=== PATIENT | female | born 1970 | race Caucasian/White ===

== ENCOUNTER → 2016-12-22 | Outpatient (CLI) | payer OTHER ==
[~2016-12-22] MED LIST: AMLO5 PO; LEVO75TA3 PO; METF500T PO; OXYC-392 PO; ZOFR4TAB PO
[2016-12-22 12:29] LABS: ALT (GPT) 26 U/L (10-53); ANION GAP 10 MEQ/L (5-15); AST (GOT) 18 U/L (15-37); BICARBONATE 24.1 MEQ/L (21.0-32.0); BLOOD UREA NITROGEN 14 MG/DL (7-18); CHLORIDE 105 MEQ/L (98-107); GLOMERULAR FILTRATION RATE 79 ML/MIN (>89); GLUCOSE,FASTING 160 MG/DL (74-99); MAGNESIUM 1.8 MG/DL (1.5-2.5); POTASSIUM 3.7 MEQ/L (3.5-5.1); SODIUM (NA) 139 MEQ/L (136-145)
[2016-12-22 12:55] LABS: ALKALINE PHOSPHATASE 55 U/L (45-117); TOTAL BILIRUBIN ADULT 0.5 MG/DL (0.2-1.0)
[2016-12-22 16:53] LABS: HEMOGLOBIN LA1C 2.3 %
[2016-12-22 16:54] LABS: HEMOGLOBIN Ao 82.9 %
== END ==
LOC: ELAB 08:09
PROVIDERS: ATTEND Family Medicine
DX: E11.9 Type 2 diabetes mellitus without complications (principal); E87.8 Other disorders of electrolyte and fluid balance, not elsewhere classified; E55.9 Vitamin D deficiency, unspecified
CPT/HCPCS: 36415; 80053; 82306; 82607; 83036; 83735

== ENCOUNTER 2017-12-30 14:14 | Observation (INO) | payer OTHER ==
[~2017-12-30] VITALS: Ht 170.2 cm; Wt 105.0 kg
[~2017-12-30 14:14] MED LIST changes: +LEVO75TA43 PO
[2017-12-30 14:34] VITALS: BP 182/87; PULSE 120; RESP 20; TEMP 98.8; O2SAT 96
[2017-12-30] MEDS ORDERED: SODIUM CHLOR 0.9% 1000 ML INJ 1,000 ML IV ONE ×2 (14:37→16:00)
[2017-12-30] MEDS ORDERED: KETOROLAC TROMETHAMINE 30 MG/ML (IVP) VIAL IV PUSH ONE (14:45)
[2017-12-30] MEDS ORDERED: ONDANSETRON HCL 4 MG/2 ML VIAL IV PUSH ONE (14:45)
--- NOTE | 2017-12-30 15:05 | PD ---
HPI Chief Complaint: Flank/Kidney Pain Time Seen by Provider: 14:29 Travel History International Travel<30 days: No Contact w/Intl Traveler<30days: No Traveled to known affect area: No History of Present Illness HPI 47-year-old female presents with left-sided flank pain over the past couple of days with nausea and chills that feels similar to prior kidney stone. She states that last year she had to have a stent and since then has had it removed. She states she prefers Dr. Pickett to be her urologist. She denies other associated symptoms. Quality pain is sharp. Severity is moderate. She denies specific modifying factors. She does note traveling around and did not know if it was related to that with the movements. Duration is couple of days. PFSH Past Medical History Kidney Stones: Yes Tetanus Vaccination: Unknown Influenza Vaccination: No ?: Not Past Surgical History Section: Yes Other Surgery: Yes (Lithotripsy, renal stent) Social History Alcohol Use: Yes (ONCE IN A WHILE) Tobacco Use: No Substance Use: No Allergies-Medications (Allergen,Severity, Reaction): Coded Allergies: Sulfa (Sulfonamide Antibiotics) (Unverified Allergy, Severe, Hives, ) ciprofloxacin (Unverified Allergy, Severe, Hives, 12/30/17) Reported Meds & Prescriptions Reported Meds & Active Scripts Active Reported Metformin (Metformin HCl) 500 Mg Tab 500 Mg PO BIDPC With meals Levoxyl (Levothyroxine Sodium) 75 Mcg Tab 75 Mcg PO DAILY Review of Systems Except as stated in HPI: all other systems reviewed are Neg Physical Exam Narrative GENERAL: 47-year-old female in no apparent distress SKIN: Focused skin assessment warm/dry. HEAD: Atraumatic. Normocephalic. EYES: Pupils equal and round. No scleral icterus. No injection or drainage. ENT: No nasal bleeding or discharge. Mucous membranes pink and moist. NECK: Trachea midline. CARDIOVASCULAR: Regular rate and rhythm. RESPIRATORY: No accessory muscle use. Clear to auscultation. Breath sounds equal bilaterally. GASTROINTESTINAL: Abdomen soft, mild tenderness in the lower abdomen, nondistended. Back: No CVA tenderness, no midline pain, mild tenderness to left mid lateral back MUSCULOSKELETAL: No obvious deformities. No clubbing. No cyanosis. NEUROLOGICAL: Awake and alert. No obvious cranial nerve deficits. Motor grossly within normal limits. Normal speech. PSYCHIATRIC: Appropriate mood and affect; insight and judgment normal. Data Data Last Documented VS Vital Signs Date Time Temp Pulse Resp B/P (MAP) Pulse Ox O2 Delivery O2 Flow Rate FiO2 12/30/17 14:38 18 12/30/17 14:34 98.8 120 182/87 (118) 96 Orders Orders Complete Blood Count With Diff (12/30/17 14:37) Comprehensive Metabolic Panel (12/30/17 14:37) Urinalysis - C+S If Indicated (12/30/17 14:37) Ed Urine Pregnancytest Poc (12/30/17 14:37) Ct Abd/Pel W/O Iv Contrast (12/30/17 14:37) Ecg Monitoring (12/30/17 14:37) Iv Access Insert/Monitor (12/30/17 14:37) Ketorolac Inj (Toradol Inj) (12/30/17 14:45) Ondansetron Inj (Zofran Inj) (12/30/17 14:45) Sodium Chloride 0.9% Flush (Ns Flush) (12/30/17 14:45) Sodium Chlor 0.9% 1000 Ml Inj (Ns 1000 M (12/30/17 14:37) Urine Culture (12/30/17 14:45) Lactic Acid Sepsis Protocol (12/30/17 15:52) Blood Culture (12/30/17 15:52) Ceftriaxone Inj (Rocephin Inj) (12/30/17 16:00) Sodium Chlor 0.9% 1000 Ml Inj (Ns 1000 M (12/30/17 16:00) Consult General Surgery (12/30/17 ) Piperacil-Tazo 4.5 Gm Premix (Zosyn 4.5 (12/30/17 16:38) Metronidazole 500 Mg Inj (Flagyl 500 Mg (12/30/17 16:38) Morphine Inj (Morphine Inj) (12/30/17 17:00) Consult Renetta Nfs (12/30/17 ) (Hub Use Only)Inp Phy Cons/Ref (12/30/17 ) Admit Order (Ed Use Only) (12/30/17 17:03) Labs Laboratory Tests Test 12/30/17 14:45 White Blood Count 11.6 TH/MM3 Red Blood Count 4.78 MIL/MM3 Hemoglobin 13.0 GM/DL Hematocrit 37.3 % Mean Corpuscular Volume 78.0 FL Mean Corpuscular Hemoglobin 27.1 PG Mean Corpuscular Hemoglobin Concent 34.8 % Red Cell Distribution Width 14.3 % Platelet Count 247 TH/MM3 Mean Platelet Volume 8.8 FL Neutrophils (%) (Auto) 83.3 % Lymphocytes (%) (Auto) 10.5 % Monocytes (%) (Auto) 5.4 % Eosinophils (%) (Auto) 0.3 % Basophils (%) (Auto) 0.5 % Neutrophils # (Auto) 9.7 TH/MM3 Lymphocytes # (Auto) 1.2 TH/MM3 Monocytes # (Auto) 0.6 TH/MM3 Eosinophils # (Auto) 0.0 TH/MM3 Basophils # (Auto) 0.1 TH/MM3 CBC Comment DIFF FINAL Differential Comment Urine Color YELLOW Urine Turbidity HAZY Urine pH 6.0 Urine Specific [place] 1.009 Urine Protein TRACE mg/dL Urine Glucose (UA) NEG mg/dL Urine Ketones TRACE mg/dL Urine Occult Blood TRACE Urine Nitrite POS Urine Bilirubin NEG Urine Urobilinogen LESS THAN 2.0 MG/DL Urine Leukocyte Esterase LARGE Urine RBC 11 /hpf Urine WBC /hpf Urine Squamous Epithelial Cells 1 /hpf Urine Calcium Oxalate Crystals OCC /hpf Urine Amorphous Sediment RARE Urine Bacteria MANY /hpf Urine Mucus FEW /lpf Microscopic Urinalysis Comment CULTURE INDICATED Blood Urea Nitrogen 10 MG/DL Creatinine 0.75 MG/DL Random Glucose 150 MG/DL Total Protein 8.0 GM/DL Albumin 3.8 GM/DL Calcium Level 8.9 MG/DL Alkaline Phosphatase 85 U/L Aspartate Amino Transf (AST/SGOT) 14 U/L Alanine Aminotransferase (ALT/SGPT) 28 U/L Total Bilirubin 0.9 MG/DL Sodium Level 136 MEQ/L Potassium Level 3.7 MEQ/L Chloride Level 102 MEQ/L Carbon Dioxide Level 22.8 MEQ/L Anion Gap 11 MEQ/L Estimat Glomerular Filtration Rate 83 ML/MIN [facility] Medical Decision Making Medical Screen Exam Complete: Yes Emergency Medical Condition: Yes Medical Record Reviewed: Yes (Past history confirmed) Interpretation(s) CBC & BMP Diagram 12/30/17 14:45 Total Protein 8.0, Albumin 3.8, Calcium Level 8.9, Alkaline Phosphatase 85, Aspartate Amino Transf (AST/SGOT) 14 L, Alanine Aminotransferase (ALT/SGPT) 28, Total Bilirubin 0.9 Last 24 hours Impressions Abdomen/Pelvis CT 12/30/17 1437 Signed Impressions: Service Date/Time: December 15:35 - CONCLUSION: 1. Inflammatory changes are noted surrounding a thickened loop of sigmoid colon suggesting acute diverticulitis. Acute colitis is also in the differential. Tiny air bubbles are noted adjacent to the wall of the sigmoid suggesting possible microperforation. 2. Retroperitoneal, right iliac and bilateral obturator lymphadenopathy. Infectious and neoplastic etiologies should be considered. 3. Enlarged fatty liver. 4. Splenomegaly. 5. 2.2 cm nonobstructing calcified right renal calculus. 6. 3 cm right ovarian cyst. Moustapha Barth MD Differential Diagnosis Kidney stone, UTI, renal failure, musculoskeletal Narrative Course We will check blood work, urinalysis, CT scan abdominal pelvis and dose with IV fluids, Zofran, Toradol and reevaluate Patient and family updated about CT scan. Given copy of report. Will discuss with general surgery and admit to the hospital, they agree to plan Physician Communication Physician Communication dr awad states to give zosyn and flagyl and will follow along dr browne agrees to admit Diagnosis Primary Impression: Diverticulitis Additional Impression: UTI (urinary tract infection) Qualified Codes: N39.0 - Urinary tract infection, site not specified Admitting Information Admitting Physician Requests: Hillary Lua MD Dec 30, 2017 15:05
[2017-12-30 15:10] LABS: AUTOMATED NEUTROPHIL # 9.7 TH/MM3 (1.8-7.7); BASOPHIL # 0.1 TH/MM3 (0-0.2); BASOPHIL % 0.5 % (0.0-2.0); EOSINOPHIL % 0.3 % (0.0-4.0); HEMATOCRIT 37.3 % (35.0-46.0); LYMPH % 10.5 % (9.0-44.0); LYMPHOCYTE # 1.2 TH/MM3 (1.0-4.8); MEAN CORPUSCULAR HEMOGLOBIN 27.1 PG (27.0-34.0); MEAN CORPUSCULAR HGB CONC 34.8 % (32.0-36.0); MEAN PLATELET VOLUME 8.8 FL (7.0-11.0); MONO % 5.4 % (0.0-8.0); MONOCYTE # 0.6 TH/MM3 (0-0.9); NEUT % 83.3 % (16.0-70.0); PLATELET COUNT 247 TH/MM3 (150-450); RED BLOOD COUNT 4.78 MIL/MM3 (4.00-5.30); RED CELL DISTRIBUTION WIDTH 14.3 % (11.6-17.2); WHITE BLOOD COUNT 11.6 TH/MM3 (4.0-11.0)
[2017-12-30] MEDS: SODIUM CHLORIDE 0.9% FLUSH 10 ML FLUSH IVF PRN ×2 (15:16→16:18)
[2017-12-30 15:20] LABS: AMORPHOUS SEDIMENT, URINE RARE; BACTERIA, URINE MANY /hpf; BILIRUBIN, URINE NEG (NEG); BLOOD, URINE TRACE (NEG); CALCIUM OXALATE CRYSTALS,URINE OCC /hpf; GLUCOSE,URINE NEG (NEG); KETONE, URINE TRACE mg/dL (NEG); MUCUS URINE FEW /lpf (OCC); NITRITE,URINE POS (NEG); SQUAMOUS EPITHELIAL CELL URINE 1 /hpf (0-5); URINE COLOR YELLOW (YELLW/STRAW); URINE LEUKOCYTE ESTERASE LARGE (NEG)
[2017-12-30 15:45] LABS: ALBUMIN 3.8 GM/DL (3.4-5.0); AST (GOT) 14 U/L (15-37); BICARBONATE 22.8 MEQ/L (21.0-32.0); BLOOD UREA NITROGEN 10 MG/DL (7-18); CALCIUM 8.9 MG/DL (8.5-10.1); CHLORIDE 102 MEQ/L (98-107); CREATININE 0.75 MG/DL (0.50-1.00); GLOMERULAR FILTRATION RATE 83 ML/MIN (>89); GLUCOSE,RANDOM 150 MG/DL (74-106); SODIUM (NA) 136 MEQ/L (136-145)
[2017-12-30 15:49] LABS: ALKALINE PHOSPHATASE 85 U/L (45-117); ALT (GPT) 28 U/L (10-53); TOTAL BILIRUBIN ADULT 0.9 MG/DL (0.2-1.0)
[2017-12-30] MEDS ORDERED: cefTRIAXone INJ 1,000 MG in SODIUM CHLORIDE 0.9% INJ 100 ML IV ONE (16:00)
--- NOTE | 2017-12-30 16:14 | RADRPT ---
EXAM DATE/TIME: 12/30/2017 15:35 [place] COMPARISON: No previous studies available for comparison. INDICATIONS : Left flank pain, night sweats, and weakness ORAL CONTRAST: No oral contrast ingested. RADIATION DOSE: 8.52 CTDIvol (mGy) MEDICAL HISTORY : Diabetes mellitus type 2. Renal calculi. SURGICAL HISTORY : section. ENCOUNTER: Initial ACUITY: 3 days PAIN SCALE: 5/10 LOCATION: Left flank TECHNIQUE: Volumetric scanning of the abdomen and pelvis was performed. Using automated exposure control and ad justment of the mA and/or kV according to patient size, radiation dose was kept as low as reasonably achievable to obtain optimal diagnostic quality images. DICOM format image data is available electro nically for review and comparison. FINDINGS: Inflammatory changes are noted surrounding a thickened loop of sigmoid colon suggesting acute diverti culitis. Acute colitis is also in the differential. Tiny air bubbles are noted adjacent to the wall o f the sigmoid suggesting possible microperforation. The liver is enlarged and demonstrates diffuse fatty infiltration. No focal mass is noted. No biliary ductal dilatation is noted. The gallbladder is unremarkable. The spleen is enlarged. The pancreas is normal. The adrenal glands are normal. There is a large calcified nonobstructing right renal calculu s measuring 2.2 x 1.0 x 1.9 cm. No hydronephrosis is noted. Mildly enlarged retroperitoneal lymph nod es are noted with the largest retroperitoneal lymph nodes measuring 2.3 and 2.1 cm. There are also mi ldly prominent obturator lymph nodes bilaterally measuring 2.7 and 2.5 cm in greatest dimension. Ther e is an enlarged right common iliac lymph node measuring 2.0 cm in greatest dimension. Infectious and neoplastic etiologies should be considered. The abdominal aorta and inferior vena cava are unremarka ble. There is a 3 cm right ovarian cyst. The uterus is unremarkable. The urinary bladder is unremarka ble. No ascites or hernias are noted. CONCLUSION: 1. Inflammatory changes are noted surrounding a thickened loop of sigmoid colon suggesting acute dive rticulitis. Acute colitis is also in the differential. Tiny air bubbles are noted adjacent to the wal l of the sigmoid suggesting possible microperforation. 2. Retroperitoneal, right iliac and bilateral obturator lymphadenopathy. Infectious and neoplastic et iologies should be considered. 3. Enlarged fatty liver. 4. Splenomegaly. 5. 2.2 cm nonobstructing calcified right renal calculus. 6. 3 cm right ovarian cyst. Moustapha Barth MD on December 30, 2017 at 16:00 Board Certified Radiologist. This report was verified electronically.
[2017-12-30] MEDS ORDERED: metroNIDAZOLE 500 MG INJ 100 ML IV STA (16:38)
[2017-12-30] MEDS ORDERED: PIPERACIL-TAZO 4.5 GM PREMIX 100 ML IV STA (16:38)
[2017-12-30] MEDS ORDERED: MORPHINE SULFATE 4 MG/ML INJ IV PUSH ONE (17:00)
[2017-12-30] MEDS ORDERED: NALOXONE HCL 0.4 MG/ML AMP IV PUSH PRN (17:15)
[2017-12-30] MEDS ORDERED: SODIUM CHLORIDE 0.9% FLUSH 10 ML FLUSH IV FLUSH PRN (17:15)
[2017-12-30] MEDS ORDERED: ONDANSETRON HCL 4 MG/2 ML VIAL IVP PRN (17:15)
--- NOTE | 2017-12-30 17:55 | HHI.HP ---
[facility] Jinny [facility]ero M.D. Admission Diagnosis Acute diverticulitis with microperforation, UTI Diagnoses: Chief Complaint: Flank pain Travel History International Travel<30 Days: No Contact w/Intl Traveler <30 Da: No Traveled to Known Affected Are: No History of Present Illness The patient is a 47-year-old female with a past medical history of kidney stones and sepsis who is presenting to the hospital with flank pain. The patient has been endorsing left-sided flank pain over the past couple of days. She said that at its worst it is a 6 out of 10 in severity. It seems to radiate down her left and right groin. She has noticed some slowing down of her bowel movements recently. She has been nauseous and lost some of her appetite. She has not been vomiting. She has been experiencing chills but has not measured a fever. She has not been sweating. She says that she thought she was having another kidney stone as her symptoms are identical. She denies any history of diverticular disease. She says over the past few days she has been eating a lot of fruit. She says her abdominal pain is better at this time. She did require some antiemetics in the emergency department. Discussed with family and her nurse. Review of Systems Except as stated in HPI: all other systems reviewed are Neg Past Family Social History Past Medical History Borderline diabetes Nephrolithiasis status post renal stent placement Urosepsis Hypothyroidism Past Surgical History Allergies: Coded Allergies: Sulfa (Sulfonamide Antibiotics) (Unverified Allergy, Severe, Hives, ) ciprofloxacin (Unverified Allergy, Severe, Hives, 12/30/17) Active Ordered Medications Current Medications Medications (Trade) Dose Ordered Sig/Geeta Route Start Time Stop Time Status Last Admin Sodium Chloride 1,000 ml @ 100 mls/hr Q10H IV 12/30/17 17:11 (NS Flush) 2 ml UNSCH PRN IV FLUSH 12/30/17 17:15 (NS Flush) 2 ml BID IV FLUSH 4/12/18 21:00 (Zofran Inj) 4 mg Q6H PRN IVP 12/30/17 17:15 (Narcan Inj) 0.4 mg UNSCH PRN IV PUSH 12/30/17 17:15 Piperacillin Sod/ Tazobactam Sod 100 ml @ 200 mls/hr Q6H IV 12/30/17 23:00 (Synthroid) 75 mcg DAILY@0600 PO 12/31/17 06:00 (NovoLOG SUPPLEMENTAL SCALE) 1 ACHS SLIDING SCALE SQ 12/30/17 21:00 Family History Her mother had colon cancer Social History The patient does not smoke. She drinks rarely. Physical Exam Vital Signs Vital Signs Date Time Temp Pulse Resp B/P (MAP) Pulse Ox O2 Delivery O2 Flow Rate FiO2 12/30/17 14:38 18 12/30/17 14:34 98.8 120 20 182/87 (118) 96 Physical Exam GENERAL: This is a well-nourished, well-developed patient, in no apparent distress. SKIN: No rashes, ecchymoses or lesions. Cool and dry. HEAD: Atraumatic. Normocephalic. No temporal or scalp tenderness. EYES: Pupils equal round and reactive. Extraocular motions intact. No scleral icterus. No injection or drainage. ENT: Nose without bleeding, purulent drainage or septal hematoma. Throat without erythema, tonsillar hypertrophy or exudate. Uvula midline. Airway patent. NECK: Trachea midline. No JVD or lymphadenopathy. Supple, nontender, no meningeal signs. CARDIOVASCULAR: Tachycardic without murmurs, gallops, or rubs. RESPIRATORY: Clear to auscultation. Breath sounds equal bilaterally. No wheezes , rales, or rhonchi. GASTROINTESTINAL: Abdomen soft, nondistended. No hepato-splenomegaly, or palpable masses. No guarding. Left sided flank tenderness noted. Mild abdominal tenderness noted. Normoactive bowel sounds. MUSCULOSKELETAL: Extremities without clubbing, cyanosis, or edema. No joint tenderness, effusion, or edema noted. NEUROLOGICAL: Awake and alert. Cranial nerves II through XII intact. Motor and sensory grossly within normal limits. Five out of 5 muscle strength in all muscle groups. Normal speech. PSYCH: Mood and affect appropriate. Laboratory Laboratory Tests Test 12/30/17 14:45 White Blood Count 11.6 Red Blood Count 4.78 Hemoglobin 13.0 Hematocrit 37.3 Mean Corpuscular Volume 78.0 Mean Corpuscular Hemoglobin 27.1 Mean Corpuscular Hemoglobin Concent 34.8 Red Cell Distribution Width 14.3 Platelet Count 247 Mean Platelet Volume 8.8 Neutrophils (%) (Auto) 83.3 Lymphocytes (%) (Auto) 10.5 Monocytes (%) (Auto) 5.4 Eosinophils (%) (Auto) 0.3 Basophils (%) (Auto) 0.5 Neutrophils # (Auto) 9.7 Lymphocytes # (Auto) 1.2 Monocytes # (Auto) 0.6 Eosinophils # (Auto) 0.0 Basophils # (Auto) 0.1 CBC Comment DIFF FINAL Differential Comment Urine Color YELLOW Urine Turbidity HAZY Urine pH 6.0 Urine Specific [place] 1.009 Urine Protein TRACE Urine Glucose (UA) NEG Urine Ketones TRACE Urine Occult Blood TRACE Urine Nitrite POS Urine Bilirubin NEG Urine Urobilinogen LESS THAN 2.0 Urine Leukocyte Esterase LARGE Urine RBC 11 Urine WBC Urine Squamous Epithelial Cells 1 Urine Calcium Oxalate Crystals OCC Urine Amorphous Sediment RARE Urine Bacteria MANY Urine Mucus FEW Microscopic Urinalysis Comment CULTURE INDICATED Blood Urea Nitrogen 10 Creatinine 0.75 Random Glucose 150 Total Protein 8.0 Albumin 3.8 Calcium Level 8.9 Alkaline Phosphatase 85 Aspartate Amino Transf (AST/SGOT) 14 Alanine Aminotransferase (ALT/SGPT) 28 Total Bilirubin 0.9 Sodium Level 136 Potassium Level 3.7 Chloride Level 102 Carbon Dioxide Level 22.8 Anion Gap 11 Estimat Glomerular Filtration Rate 83 Date/Time Source Procedure Growth Status 12/30/17 13:50 Blood Peripheral Aerobic Blood Culture Pending Received 12/30/17 13:50 Blood Peripheral Anaerobic Blood Culture Pending Received 12/30/17 14:45 Urine Random Urine Urine Culture Pending Received Result Diagram: 12/30/17 1445 12/30/17 1445 Imaging Last Impressions Abdomen/Pelvis CT 12/30/17 1437 Signed Impressions: Service Date/Time: December 15:35 - CONCLUSION: 1. Inflammatory changes are noted surrounding a thickened loop of sigmoid colon suggesting acute diverticulitis. Acute colitis is also in the differential. Tiny air bubbles are noted adjacent to the wall of the sigmoid suggesting possible microperforation. 2. Retroperitoneal, right iliac and bilateral obturator lymphadenopathy. Infectious and neoplastic etiologies should be considered. 3. Enlarged fatty liver. 4. Splenomegaly. 5. 2.2 cm nonobstructing calcified right renal calculus. 6. 3 cm right ovarian cyst. Moustapha Barth MD Caprini VTE Risk Assessment Caprini VTE Risk Assessment: Mod/High Risk (score >= 2) Caprini Risk Assessment Model Point Value = 1 Point Value = 2 Point Value = 3 Point Value = 5 Age 41-60 Minor surgery BMI > 25 kg/m2 Swollen legs Varicose veins or History of unexplained or recurrent spontaneous Oral contraceptives or hormone replacement Sepsis (< 1 month) Serious lung disease, including pneumonia (< 1 month) Abnormal pulmonary function Acute myocardial infarction Congestive heart failure (< 1 month) History of inflammatory bowel disease Medical patient at bed rest Age 61-74 Arthroscopic surgery Major open surgery (> 45 min) Laparoscopic surgery (> 45 min) Malignancy Confined to bed (> 72 hours) Immobilizing plaster cast Central venous access Age >= 75 History of VTE Family history of VTE Factor V Leiden Prothrombin [id number] Lupus anticoagulant Anticardiolipin antibodies Elevated serum homocysteine Heparin-induced thrombocytopenia Other congenital or acquired thrombophilia Stroke (< 1 month) Elective arthroplasty Hip, pelvis, or leg fracture Acute spinal cord injury (< 1 month) Prophylaxis Regimen Total Risk Factor Score Risk Level Prophylaxis Regimen 0-1 Low Early ambulation 2 Moderate Order ONE of the following: *Sequential Compression Device (SCD) *Heparin 5000 units SQ BID 3-4 Higher Order ONE of the following medications: *Heparin 5000 units SQ TID *Enoxaparin/Lovenox 40 mg SQ daily (WT < 150 kg, CrCl > 30 mL/min) *Enoxaparin/Lovenox 30 mg SQ daily (WT < 150 kg, CrCl > 10-29 mL/min) *Enoxaparin/Lovenox 30 mg SQ BID (WT < 150 kg, CrCl > 30 mL/min) AND/OR *Sequential Compression Device (SCD) 5 or more Highest Order ONE of the following medications: *Heparin 5000 units SQ TID (Preferred with Epidurals) *Enoxaparin/Lovenox 40 mg SQ daily (WT < 150 kg, CrCl > 30 mL/min) *Enoxaparin/Lovenox 30 mg SQ daily (WT < 150 kg, CrCl > 10-29 mL/min) *Enoxaparin/Lovenox 30 mg SQ BID (WT < 150 kg, CrCl > 30 mL/min) AND *Sequential Compression Device (SCD) Assessment and Plan Assessment and Plan Acute diverticulitis The patient presented with left-sided flank pain, nausea and chills. She was found to have leukocytosis. CT of the abdomen showed: Inflammatory changes are noted surrounding a thickened loop of sigmoid colon suggesting acute diverticulitis; Acute colitis is also in the differential; Tiny air bubbles are noted adjacent to the wall of the sigmoid suggesting possible microperforation; Retroperitoneal, right iliac and bilateral obturator lymphadenopathy. Infectious and neoplastic etiologies should be considered. - continue IV Zosyn. - NPO with IVFs. - general surgery has been consulted. - pain control and antiemetics as needed. UTI UA indicative of an infection. - continue Zosyn. - follow urine culture. Borderline diabetes Glucose elevated on admission. - hold home metformin. - insulin sliding scale. HTN Likely exacerbated by pain. - pain control. - clonidine as needed. Nephrolithiasis The pt has a history of nephrolithiasis/ urosepsis. CT in the ED showed: 2.2 cm nonobstructing calcified right renal calculus. - outpt follow-up with urology. PPx: SCDs Discussed Condition With Pt, pt's family, nurse Maykel Parekh DO Dec 30, 2017 17:55
[2017-12-30] MEDS ORDERED: cloNIDine HCL 0.1 MG TAB PO PRN (18:00)
[2017-12-30 18:02] VITALS: BP 167/77; PULSE 88; RESP 19; O2SAT 99
[2017-12-30] MEDS ORDERED: ACETAMINOPHEN 325 MG TAB PO PRN (18:15)
[2017-12-30] MEDS: SODIUM CHLOR 0.9% 1000 ML INJ 1,000 ML IV SCH (18:26)
[2017-12-30 18:38] VITALS: BP 149/79; PULSE 92; RESP 16; TEMP 98.7; O2SAT 99
[2017-12-30 20:00] VITALS: BP 181/92; PULSE 95; RESP 17; TEMP 99.7; O2SAT 100
[2017-12-30 20:17] VITALS: PULSE 96
[2017-12-30] MEDS: SODIUM CHLORIDE 0.9% FLUSH 10 ML FLUSH IV FLUSH SCH (20:41)
[2017-12-30 22:00] VITALS: BP 170/90; PULSE 103
[2017-12-30] MEDS: INSULIN ASPART SUPPLEMENTAL SCALE SQ SCH (22:21)
[2017-12-30] MEDS: PIPERACIL-TAZO 4.5 GM PREMIX 100 ML IV SCH (23:35)
[2017-12-31] VITALS: BP 125/59; PULSE 82; PULSE 87; RESP 18; TEMP 98.4; O2SAT 97
[2017-12-31 04:00] VITALS: BP 116/58; PULSE 75; RESP 17; TEMP 98.3; O2SAT 97
[2017-12-31] MEDS: PIPERACIL-TAZO 4.5 GM PREMIX 100 ML IV SCH (04:49)
[2017-12-31] MEDS: SODIUM CHLOR 0.9% 1000 ML INJ 1,000 ML IV SCH (04:52)
[2017-12-31] MEDS ORDERED: LEVOTHYROXINE SODIUM 75 MCG TAB PO SCH (06:00)
[2017-12-31] MEDS: SODIUM CHLORIDE 0.9% FLUSH 10 ML FLUSH IV FLUSH SCH (07:22)
[2017-12-31 08:00] VITALS: BP 126/60; PULSE 78; RESP 17; TEMP 98; O2SAT 97
[2017-12-31] MEDS: INSULIN ASPART SUPPLEMENTAL SCALE SQ SCH ×2 (08:13→12:11)
[2017-12-31 08:20] LABS: AUTOMATED NEUTROPHIL # 5.4 TH/MM3 (1.8-7.7); BASOPHIL % 0.6 % (0.0-2.0); EOSINOPHIL # 0.1 TH/MM3 (0-0.4); EOSINOPHIL % 1.3 % (0.0-4.0); HEMATOCRIT 34.1 % (35.0-46.0); HEMOGLOBIN 11.6 GM/DL (11.6-15.3); LYMPH % 17.5 % (9.0-44.0); LYMPHOCYTE # 1.3 TH/MM3 (1.0-4.8); MEAN CELL VOLUME 79.8 FL (80.0-100.0); MEAN CORPUSCULAR HEMOGLOBIN 27.2 PG (27.0-34.0); MEAN PLATELET VOLUME 8.9 FL (7.0-11.0); MONO % 6.4 % (0.0-8.0); MONOCYTE # 0.5 TH/MM3 (0-0.9); NEUT % 74.2 % (16.0-70.0); PLATELET COUNT 205 TH/MM3 (150-450); RED BLOOD COUNT 4.28 MIL/MM3 (4.00-5.30); RED CELL DISTRIBUTION WIDTH 14.3 % (11.6-17.2); WHITE BLOOD COUNT 7.3 TH/MM3 (4.0-11.0)
--- NOTE | 2017-12-31 08:28 | MB ---
cc: Nnamdi Arora MD, Joseph D MD Williams,Belen AVILA DATE: 12/30/2017 REASON FOR CONSULTATION: Perforated diverticulitis. HISTORY OF PRESENT ILLNESS: This is a pleasant 47-year-old female who had a few day history of right flank and right lower quadrant abdominal discomfort that slowly progressed. It was a little bit different than when she had a urinary tract infection with urosepsis in the previous years. She came into the emergency room. CT scan was done which showed diverticulitis with a small microperforation. I was consulted for surgical evaluation and opinion of this microperforation. The patient did not have any other symptomatology. She felt that this is a little bit worse than when she had a kidney stone in the past. PAST MEDICAL HISTORY: Significant for kidney stones in the past. She was in the hospital with what sounds like urosepsis, required prolonged hospitalization with a ureteral stent placed and slowly recovered and is still recovering from that. She also has diabetes and hypothyroidism. PAST SURGICAL HISTORY: She has had a and some lithotripsy and a renal stent. MEDICATIONS: 1. Metformin. 2. Levothyroxine. ALLERGIES: SHE IS ALLERGIC TO SULFA ANTIBIOTICS AND CIPROFLOXACIN. PHYSICAL EXAMINATION: GENERAL: She is a pleasant 47-year-old female in no apparent distress. She is lying on her side. She points to her left side where it hurts. SKIN: Warm and dry. HEENT: Head is atraumatic. Pupils are equal, round. NECK: Supple. Trachea is midline. HEART: Regular rate without tachycardia. CHEST: Fairly clear bilaterally. ABDOMEN: Slightly obese, soft with some mild tenderness in the right lower quadrant. No rebound or guarding. EXTREMITIES: Moves all extremities well. No clubbing, cyanosis or edema. NEUROLOGIC: Without focal deficits. She does not appear to be in distress and has good judgment. LABORATORY DATA: She had a white count of 11, H & H of 13 and 37. Chemistry essentially normal with a glucose of 138. Urinalysis has a large amount of leukocyte esterase, cultures are pending. She has blood cultures pending as well. IMAGING STUDIES: CT scan shows inflammatory change around the thick loop of sigmoid colon suggesting diverticulitis. There is a tiny air bubble adjacent to the wall suggesting possible microperforation. She has some lymphadenopathy as well. She has a fatty liver and slight enlarged liver and a big 2.2 cm right renal stone. OTHER IMPORTANT INFORMATION: Apparently she has 2 different medical record numbers. I have already notified the ER physician who is going to get admitting to join these 2 records together. ASSESSMENT: Left lower quadrant pain with clinical finding suggestive of diverticulitis She does have a small microperforation as well. They mentioned something about a question of a malignancy; however, she has been under routine surveillance by Dr. Belen Dean because of family history of colon cancer. PLAN: At this time, IV fluid hydration, clear liquids, IV antibiotics and close monitoring. MD PHIL Ramirez/ , 05:44 PM , 07:08 PM
[2017-12-31 08:40] LABS: BICARBONATE 23.9 MEQ/L (21.0-32.0); BLOOD UREA NITROGEN 6 MG/DL (7-18); CALCIUM 7.9 MG/DL (8.5-10.1); CHLORIDE 110 MEQ/L (98-107); GLUCOSE,RANDOM 152 MG/DL (74-106); SODIUM (NA) 141 MEQ/L (136-145)
[2017-12-31 08:41] VITALS: BP 126/60; PULSE 77; RESP 18; TEMP 98
[2017-12-31 08:42] LABS: ALKALINE PHOSPHATASE 67 U/L (45-117); ALT (GPT) 23 U/L (10-53); AST (GOT) 12 U/L (15-37); CREATININE 0.67 MG/DL (0.50-1.00); GLOMERULAR FILTRATION RATE 95 ML/MIN (>89); TOTAL BILIRUBIN ADULT 0.7 MG/DL (0.2-1.0); TOTAL PROTEIN 6.8 GM/DL (6.4-8.2)
[2017-12-31 11:22] VITALS: BP 132/65; PULSE 82; RESP 19; TEMP 98.3; O2SAT 99
[2017-12-31] MEDS ORDERED: POTASSIUM CHLORIDE 25 MEQ EFFERVESCENT TAB PO ONE (11:30)
--- NOTE | 2017-12-31 11:31 | HHI.PR ---
cc: Nnamdi Arora MD; Belen Dean MD Subjective Subjective Notes DAILY PROGRESS NOTE FOR SURGICAL ATTENDING, DR. NNAMDI ARORA Up to chair Feeling better Hungry Objective Vitals/I&O Vital Signs Date Time Temp Pulse Resp B/P (MAP) Pulse Ox O2 Delivery O2 Flow Rate FiO2 12/31/17 11:22 98.3 82 19 132/65 (87) 99 12/30/17 18:02 Room Air Labs Laboratory Tests Test 12/30/17 14:45 12/30/17 17:45 12/31/17 07:11 White Blood Count 11.6 7.3 Red Blood Count 4.78 4.28 Hemoglobin 13.0 11.6 Hematocrit 37.3 34.1 Mean Corpuscular Volume 78.0 79.8 Mean Corpuscular Hemoglobin 27.1 27.2 Mean Corpuscular Hemoglobin Concent 34.8 34.0 Red Cell Distribution Width 14.3 14.3 Platelet Count 247 205 Mean Platelet Volume 8.8 8.9 Neutrophils (%) (Auto) 83.3 74.2 Lymphocytes (%) (Auto) 10.5 17.5 Monocytes (%) (Auto) 5.4 6.4 Eosinophils (%) (Auto) 0.3 1.3 Basophils (%) (Auto) 0.5 0.6 Neutrophils # (Auto) 9.7 5.4 Lymphocytes # (Auto) 1.2 1.3 Monocytes # (Auto) 0.6 0.5 Eosinophils # (Auto) 0.0 0.1 Basophils # (Auto) 0.1 0.0 CBC Comment DIFF FINAL DIFF FINAL Differential Comment Urine Color YELLOW Urine Turbidity HAZY Urine pH 6.0 Urine Specific Adrian 1.009 Urine Protein TRACE Urine Glucose (UA) NEG Urine Ketones TRACE Urine Occult Blood TRACE Urine Nitrite POS Urine Bilirubin NEG Urine Urobilinogen LESS THAN 2.0 Urine Leukocyte Esterase LARGE Urine RBC 11 Urine WBC Urine Squamous Epithelial Cells 1 Urine Calcium Oxalate Crystals OCC Urine Amorphous Sediment RARE Urine Bacteria MANY Urine Mucus FEW Microscopic Urinalysis Comment CULTURE INDICATED Blood Urea Nitrogen 10 6 Creatinine 0.75 0.67 Random Glucose 150 152 Total Protein 8.0 6.8 Albumin 3.8 3.0 Calcium Level 8.9 7.9 Alkaline Phosphatase 85 67 Aspartate Amino Transf (AST/SGOT) 14 12 Alanine Aminotransferase (ALT/SGPT) 28 23 Total Bilirubin 0.9 0.7 Sodium Level 136 141 Potassium Level 3.7 3.5 Chloride Level 102 110 Carbon Dioxide Level 22.8 23.9 Anion Gap 11 7 Estimat Glomerular Filtration Rate 83 95 Lactic Acid Level 1.4 Date/Time Source Procedure Growth Status 12/30/17 13:50 Blood Peripheral Aerobic Blood Culture - Preliminary NO GROWTH IN 1 DAY Resulted 12/30/17 13:50 Blood Peripheral Anaerobic Blood Culture - Preliminary NO GROWTH IN 1 DAY Resulted 12/30/17 14:45 Urine Random Urine Urine Culture Pending Received Radiology Last Impressions Abdomen/Pelvis CT 12/30/17 1437 Signed Impressions: Service Date/Time: , December 30, 2017 15:35 - CONCLUSION: 1. Inflammatory changes are noted surrounding a thickened loop of sigmoid colon suggesting acute diverticulitis. Acute colitis is also in the differential. Tiny air bubbles are noted adjacent to the wall of the sigmoid suggesting possible microperforation. 2. Retroperitoneal, right iliac and bilateral obturator lymphadenopathy. Infectious and neoplastic etiologies should be considered. 3. Enlarged fatty liver. 4. Splenomegaly. 5. 2.2 cm nonobstructing calcified right renal calculus. 6. 3 cm right ovarian cyst. Moustapha Barth MD Cardiovascular: Regular Lungs: Clear Abdomen: Non-distended, Non-tender, BS normal Extremities: No edema A/P Problem List: (1) Diverticulitis large intestine ICD Codes: K57.32 - Diverticulitis of large intestine without perforation or abscess without bleeding Status: Acute (2) Perforated diverticulum of large intestine ICD Codes: K57.20 - Diverticulitis of large intestine with perforation and abscess without bleeding Status: Acute (3) Family history of diabetes mellitus (4) FH: colon cancer ICD Codes: Z80.0 - Family history of malignant neoplasm of digestive organs Assessment and Plan 47 year old female with diverticulitis with microperforation -Advance to low residue diet -Change antibiotics to PO---Augmentin and Flagyl -If tolerates lunch--- can DC home -Patient is already established with Dr. Dean---she will follow up with her -Discussed with Dr. Parekh and VIRGINIE Medley Attending Statement NOTE FOR SURGICAL ATTENDING, DR. NNAMDI ARORA I agree with above assessment and plan. The exam, history, and the medical decision-making described in the above note were completed with the assistance of the mid-level provider. I reviewed and agree with the findings presented. I attest that I had a [id number] encounter with the patient on the same day, and personally performed and documented my assessment and findings in the medical record. The following services were provided during this hospital visit: Chart data review, vital sign assessments/reviewing monitor data Review of consultations notes if present. Medication orders/review and/or management Ordering and/or reviewing lab tests Ordering and/or interpreting/reviewing x-rays and/or diagnostic studies Care of the patient and discussion of the patient with the care team Documentation time To help prompt me to consider important information that might be impacting today's encounter and assessment, Information from prior notes written by myself or my colleagues may have been "brought forward/copy and pasted" into today's note. Problem Qualifiers (1) Diverticulitis large intestine: Qualified Codes: K57.20 - Diverticulitis of large intestine with perforation and abscess without bleeding Jing SharpP/Academic Affairs Vice President [employer]OR [employer] Dec 31, 2017 11:31 Nnamdi Arora MD Dec 31, 2017 15:28
[2017-12-31] MEDS ORDERED: METR-1 PO (11:32)
[2017-12-31] MEDS ORDERED: AMOX875T2 PO (11:32)
[2017-12-31] MEDS ORDERED: ZOFR4TAB3 SL (11:40)
--- NOTE | 2017-12-31 11:42 | HHI.DCPOC ---
Discharge Care Plan Diagnosis: (1) Diverticulitis (2) UTI (urinary tract infection) Goals to Promote Your Health * To prevent worsening of your condition and complications * To maintain your health at the optimal level Directions to Meet Your Goals Take your medications as prescribed Follow your dietary instruction Follow activity as directed Keep your appointments as scheduled Take your immunizations and boosters as scheduled If your symptoms worsen call your PCP, if no PCP go to Urgent Care Center or Emergency Room Smoking is Dangerous to Your Health. Avoid second hand smoke Call the 24-hour hour crisis hotline for domestic abuse at Maykel Parekh DO Dec 31, 2017 11:42
[2017-12-31] MEDS ORDERED: MACR100C2 PO (11:53)
--- NOTE | 2017-12-31 12:04 | HHI.PR ---
Subjective Remarks The patient was resting comfortably in the chair. She was a little nauseous but that her pain was not bad. She has not been having any bowel movements. She did pass a little gas. She was anxious to go home. She tolerated breakfast. Discussed with nursing and surgery. Objective Vitals Vital Signs Date Time Temp Pulse Resp B/P (MAP) Pulse Ox O2 Delivery O2 Flow Rate FiO2 12/31/17 11:22 98.3 82 19 132/65 (87) 99 12/31/17 08:41 98.0 77 18 126/60 (82) 12/31/17 08:00 98.0 78 17 126/60 (82) 97 12/31/17 04:00 98.3 75 17 116/58 (77) 97 12/31/17 00:00 98.4 87 18 125/59 (81) 97 12/31/17 00:00 82 12/30/17 22:00 103 170/90 (116) 12/30/17 20:17 96 12/30/17 20:00 99.7 95 17 181/92 (121) 100 12/30/17 18:38 98.7 92 16 149/79 (102) 99 12/30/17 18:05 12/30/17 18:02 88 19 167/77 (107) 99 Room Air 12/30/17 14:38 18 12/30/17 14:34 98.8 120 20 182/87 (118) 96 I/O 12/30/17 12/30/17 12/30/17 12/31/17 12/31/17 12/31/17 07:00 15:00 23:00 07:00 15:00 23:00 Intake Total 241 ml 1140 ml Balance 241 ml 1140 ml Intake Oral 240 ml IV Total 241 ml 900 ml # Voids 1 2 Result Diagram: 12/31/17 0711 12/31/17 0711 Imaging Last Impressions Abdomen/Pelvis CT 12/30/17 5807 Signed Impressions: Service Date/Time: December 15:35 - CONCLUSION: 1. Inflammatory changes are noted surrounding a thickened loop of sigmoid colon suggesting acute diverticulitis. Acute colitis is also in the differential. Tiny air bubbles are noted adjacent to the wall of the sigmoid suggesting possible microperforation. 2. Retroperitoneal, right iliac and bilateral obturator lymphadenopathy. Infectious and neoplastic etiologies should be considered. 3. Enlarged fatty liver. 4. Splenomegaly. 5. 2.2 cm nonobstructing calcified right renal calculus. 6. 3 cm right ovarian cyst. Moustapha Barth MD Objective Remarks GENERAL: This is a well-nourished, well-developed patient, in no apparent distress. SKIN: No rashes, ecchymoses or lesions. Cool and dry. HEAD: Atraumatic. Normocephalic. No temporal or scalp tenderness. EYES: Pupils equal round and reactive. Extraocular motions intact. No scleral icterus. No injection or drainage. ENT: Nose without bleeding, purulent drainage or septal hematoma. Throat without erythema, tonsillar hypertrophy or exudate. Uvula midline. Airway patent. NECK: Trachea midline. No JVD or lymphadenopathy. Supple, nontender, no meningeal signs. CARDIOVASCULAR: Tachycardic without murmurs, gallops, or rubs. RESPIRATORY: Clear to auscultation. Breath sounds equal bilaterally. No wheezes , rales, or rhonchi. GASTROINTESTINAL: Abdomen soft, nondistended. No hepato-splenomegaly, or palpable masses. No guarding. Left sided flank tenderness noted. Mild abdominal tenderness noted. Normoactive bowel sounds. MUSCULOSKELETAL: Extremities without clubbing, cyanosis, or edema. No joint tenderness, effusion, or edema noted. NEUROLOGICAL: Awake and alert. Cranial nerves II through XII intact. Motor and sensory grossly within normal limits. Five out of 5 muscle strength in all muscle groups. Normal speech. PSYCH: Mood and affect appropriate. Medications and IVs Current Medications Medications (Trade) Dose Ordered Sig/Geeta Route Start Time Stop Time Status Last Admin (NS Flush) 2 ml UNSCH PRN IV FLUSH 12/30/17 17:15 (NS Flush) 2 ml BID IV FLUSH 12/30/17 21:00 12/31/17 07:22 (Zofran Inj) 4 mg Q6H PRN IVP 12/30/17 17:15 12/31/17 07:22 (Narcan Inj) 0.4 mg UNSCH PRN IV PUSH 12/30/17 17:15 (Synthroid) 75 mcg DAILY@0600 PO 12/31/17 06:00 12/31/17 04:49 (NovoLOG SUPPLEMENTAL SCALE) 1 ACHS SLIDING SCALE SQ 12/30/17 21:00 12/31/17 08:13 (Catapres) 0.1 mg Q6H PRN PO 12/30/17 18:00 (Tylenol) 650 mg Q4H PRN PO 12/30/17 18:15 (Roxicodone) 5 mg Q4H PRN PO 12/30/17 18:15 (Roxicodone) 10 mg Q4H PRN PO 12/30/17 18:15 (Flagyl) 500 mg Q8HR PO 12/31/17 14:00 (Augmentin) 875 mg Q12HR PO 12/31/17 21:00 A/P Assessment and Plan Acute diverticulitis The patient presented with left-sided flank pain, nausea and chills. She was found to have leukocytosis. CT of the abdomen showed: Inflammatory changes are noted surrounding a thickened loop of sigmoid colon suggesting acute diverticulitis; Acute colitis is also in the differential; Tiny air bubbles are noted adjacent to the wall of the sigmoid suggesting possible microperforation; Retroperitoneal, right iliac and bilateral obturator lymphadenopathy. Infectious and neoplastic etiologies should be considered. General surgery consult appreciated. Symptoms improved and tolerating a diet. - continue IV Zosyn. Change to PO Augmentin and Flagyl per surgery. - outpt follow up with colorectal surgery. - low residue diet. - pain control and antiemetics as needed. UTI UA indicative of an infection. - continue Zosyn. Switch to Macrobid on discharge in addition to above antibioticws. - follow urine culture. Borderline diabetes Glucose elevated on admission. - hold home metformin. Resume upon discharge. - insulin sliding scale. HTN Likely exacerbated by pain. Well controlled at this time. - pain control. - clonidine as needed. Nephrolithiasis The pt has a history of nephrolithiasis/ urosepsis. CT in the ED showed: 2.2 cm nonobstructing calcified right renal calculus. - outpt follow-up with urology. - on Macrobid for UTI. PPx: SCDs Discharge Planning D/c home today if tolerating a diet Maykel Parekh DO Dec 31, 2017 12:04
[2017-12-31] MEDS ORDERED: metroNIDAZOLE 500 MG TAB PO SCH (14:00)
[2017-12-31] MEDS ORDERED: AMOXICILLIN/CLAVULANATE K 875 MG TAB PO SCH (21:00)
== END 2017-12-31 15:05 | disposition home or self-care (01) ==
LOC: NEPC 14:14 → MERGE 17:04 → NEDA 17:04 → N07B 18:03
PROVIDERS: ADMIT Hospitalist; ATTEND Hospitalist
DX: K57.20 Diverticulitis of large intestine with perforation and abscess without bleeding (principal); N39.0 Urinary tract infection, site not specified; I10 Essential (primary) hypertension; E11.9 Type 2 diabetes mellitus without complications; E03.9 Hypothyroidism, unspecified; N20.0 Calculus of kidney; Z80.0 Family history of malignant neoplasm of digestive organs
CPT/HCPCS: 74176; 80053; 81001; 82948; 83605; 84703; 85025; 87040; 87077; 87086; 87186; 96361; 96365; 96367; 96372; 96375; 96376; 99285; G0378; J0696; J1815; J2405; J2543; J7030

== ENCOUNTER → 2018-02-23 | Outpatient (CLI) | payer OTHER ==
[~2018-02-23] VITALS: Ht 170.2 cm; Wt 103.9 kg
[~2018-02-23] MED LIST changes: -AMLO5 PO; +APREPITANT 40 MG CAP ONE; +CHLORHEXIDINE GLUCONATE 2 % 1 PACK (2 CLOTHS) TOPICAL PRN; +CLIN150C14 PO; +DEXTROSE 5% IN WATE 1000ML INJ 1,000 ML IV SCH; +LACTATED RINGER'S 1000 ML IV PRN; -LEVO75TA43 PO; +METOPROLOL TARTRATE 25 MG TAB PO PRN; +MIDAZOLAM HCL 2 MG/2 ML VIAL ONE; +MUPI2OIN TOPICAL; -OXYC-392 PO; +POVIDONE IODINE 5% (ANTISEPSIS KIT) 4 APPLICATIONS EACH NARE PRN; +PROPOFOL 200 MG/20 ML AMP IV ONE; +SODIUM CHLORID 0.9% 500 ML IV PRN
--- NOTE | 2018-02-23 08:12 | GIPROC ---
[facility] [address] [facility]. [facility], [address] COLONOSCOPY PROCEDURE REPORT EXAM DATE: 02/23/2018 PATIENT NAME: Blanca Sesay MR #: [id number] BIRTHDATE: 1970 ENDOSCOPIST: Belen Dean MD ORDER #: [id number] BOILER MECHANIC: Dalila Gallardo and mEerald Aleman STATUS: outpatient INDICATIONS: The patient is a 47 yr old female here for a colonoscopy due to diverticulitis, personal history of polyps, family historyof polyps and colon cancer PROCEDURE PERFORMED: Total colonoscopy withsnare polypectomy and fulguration MEDICATIONS: See Anesthesia Record ESTIMATED BLOOD LOSS: None CONSENT: The patient understands the risks and benefits of the procedure and understands that these risks include, but are not limited to: sedation, allergic reaction, infection, perforation and/or bleeding. Alternative means of evaluation and treatment include, among others: physical exam, x-rays, and/or surgical intervention. The patient elects to proceed with this endoscopic procedure. DESCRIPTION OF PROCEDURE: checked for proper function. Hand hygiene and appropriate measures for infection prevention was taken. After the risks, benefits and alternatives of the procedure were thoroughly explained, Informed consent was verified, confirmed and timeout was successfully executed by the treatment team. A digital exam was performed. The endoscope was introduced through the anus and advanced to the cecum, which was identified by the appendiceal orifice, tri-radiate valve, and ileocecal valve. The prep quality was good. The instrument was then slowly withdrawn as the colon was fully examined. There were no mucosal abnormalities noted within the terminal ileum, cecum, or ascending colon. In the mid-transverse colon, a 1 cm polyp was removed with the snare polypectomy forceps. The stalk was somewhat prominent so it was fulgurated. Scattered diverticulosis was noted in the descending and sigmoid colon. There were no abnormalities in the rectum. The scope was then completely withdrawn from the patient and the procedure terminated. ADVERSE EVENTS: There were no complications. WITHDRAWL TIME: 8'30" DEGREE OF DIFFICULTY: IMPRESSIONS: Normal Colon RECOMMENDATIONS: Repeat colonoscopy 3 years PATIENT CONDITION: Stable DISPOSITION: Home RECALL: 3 years Belen Dean MD eSigned: Belen Dean MD 02/23/2018 8:11 AM cc: Dr. Marti PATIENT NAME: Blanca Sesay MR#: [id number]
[2018-02-23 08:44] VITALS: BP 127/91; PULSE 84; RESP 20; TEMP 96.9; O2SAT 98
== END ==
LOC: HEND 05:45
PROVIDERS: ATTEND Colon & Rectal Surgery
DX: Z12.11 Encounter for screening for malignant neoplasm of colon (principal); Z86.010 Personal history of colon polyps; Z80.0 Family history of malignant neoplasm of digestive organs; D12.3 Benign neoplasm of transverse colon; K57.30 Diverticulosis of large intestine without perforation or abscess without bleeding; I49.9 Cardiac arrhythmia, unspecified
CPT/HCPCS: 00812; 45385; 88305; J2250; J7120; J8501

== ENCOUNTER → 2018-03-18 | Outpatient (CLI) | payer OTHER ==
[~2018-03-18] MED LIST changes: -APREPITANT 40 MG CAP ONE; -CHLORHEXIDINE GLUCONATE 2 % 1 PACK (2 CLOTHS) TOPICAL PRN; -DEXTROSE 5% IN WATE 1000ML INJ 1,000 ML IV SCH; -LACTATED RINGER'S 1000 ML IV PRN; -METOPROLOL TARTRATE 25 MG TAB PO PRN; -MIDAZOLAM HCL 2 MG/2 ML VIAL ONE; -POVIDONE IODINE 5% (ANTISEPSIS KIT) 4 APPLICATIONS EACH NARE PRN; -PROPOFOL 200 MG/20 ML AMP IV ONE; -SODIUM CHLORID 0.9% 500 ML IV PRN
[2018-03-18 15:42] LABS: AUTOMATED NEUTROPHIL # 4.6 TH/MM3 (1.8-7.7); BASOPHIL # 0.1 TH/MM3 (0-0.2); BASOPHIL % 0.8 % (0.0-2.0); EOSINOPHIL # 0.1 TH/MM3 (0-0.4); EOSINOPHIL % 1.5 % (0.0-4.0); HEMATOCRIT 36.6 % (35.0-46.0); HEMOGLOBIN 12.4 GM/DL (11.6-15.3); LYMPH % 23.7 % (9.0-44.0); LYMPHOCYTE # 1.6 TH/MM3 (1.0-4.8); MEAN CELL VOLUME 78.3 FL (80.0-100.0); MEAN CORPUSCULAR HEMOGLOBIN 26.5 PG (27.0-34.0); MEAN CORPUSCULAR HGB CONC 33.9 % (32.0-36.0); MEAN PLATELET VOLUME 8.4 FL (7.0-11.0); MONOCYTE # 0.6 TH/MM3 (0-0.9); PLATELET COUNT 284 TH/MM3 (150-450); RED BLOOD COUNT 4.68 MIL/MM3 (4.00-5.30); RED CELL DISTRIBUTION WIDTH 13.7 % (11.6-17.2); WHITE BLOOD COUNT 6.9 TH/MM3 (4.0-11.0)
[2018-03-18 15:42] LABS: BACTERIA, URINE MANY /hpf; BILIRUBIN, URINE NEG (NEG); BLOOD, URINE MOD (NEG); GLUCOSE,URINE NEG (NEG); KETONE, URINE NEG (NEG); MUCUS URINE MOD /lpf (OCC); NITRITE,URINE POS (NEG); SQUAMOUS EPITHELIAL CELL URINE 1 /hpf (0-5); URINE COLOR YELLOW (YELLW/STRAW); URINE LEUKOCYTE ESTERASE LARGE (NEG); WHITE BLOOD CELL CLUMPS MANY
[2018-03-18 15:59] LABS: ALBUMIN 4.2 GM/DL (3.4-5.0); AST (GOT) 16 U/L (15-37); BICARBONATE 21.8 MEQ/L (21.0-32.0); BLOOD UREA NITROGEN 15 MG/DL (7-18); CHLORIDE 106 MEQ/L (98-107); GLUCOSE,FASTING 133 MG/DL (74-99); SODIUM (NA) 137 MEQ/L (136-145)
[2018-03-18 16:25] LABS: % SATURATION IRON PROFILE 15.3 % (20-50); ALKALINE PHOSPHATASE 74 U/L (45-117); ALT (GPT) 25 U/L (10-53); FERRITIN 87 NG/ML (8-252); FREE T3 1.96 PG/ML (2.18-3.98); FREE T4 1.17 NG/DL (0.76-1.46); GLOMERULAR FILTRATION RATE 90 ML/MIN (>89); IRON (FE) 58 MCG/DL (50-170); TOTAL BILIRUBIN ADULT 0.5 MG/DL (0.2-1.0); TOTAL IRON BINDING CAPACITY 379 MCG/DL (250-450); TOTAL PROTEIN 8.2 GM/DL (6.4-8.2)
[2018-03-18 17:31] LABS: HEMOGLOBIN A1C 7.5 % (4.3-6.0)
== END ==
LOC: CLAB 14:32
PROVIDERS: ATTEND Family Medicine
DX: E07.9 Disorder of thyroid, unspecified (principal); R73.01 Impaired fasting glucose; L65.9 Nonscarring hair loss, unspecified; E53.8 Deficiency of other specified B group vitamins; E55.9 Vitamin D deficiency, unspecified; N20.0 Calculus of kidney; B96.89 Other specified bacterial agents as the cause of diseases classified elsewhere
CPT/HCPCS: 36415; 80053; 81001; 82306; 82607; 82728; 82746; 83036; 83540; 83550; 84439; 84443; 84481; 84482; 84550; 85025; 86376; 86800; 87077; 87086; 87186